=== PATIENT | male | born 1995 | race Two or more races ===

== ENCOUNTER 2021-09-16 00:59 | Emergency (ER) | payer OTHER ==
[~2021-09-16] VITALS: Ht 177.8 cm; Wt 63.5 kg
[2021-09-16 01:02] VITALS: BP 99/65
== END 2021-09-16 04:02 | disposition left against medical advice (07) ==
LOC: ER 01:10
DX: M54.6 Pain in thoracic spine (principal); Z53.21 Procedure and treatment not carried out due to patient leaving prior to being seen by health care provider; V43.52XA Car driver injured in collision with other type car in traffic accident, initial encounter; Y93.89 Activity, other specified; Y92.410 Unspecified street and highway as the place of occurrence of the external cause; Y99.8 Other external cause status